=== PATIENT | female | born 1940 | race Caucasian/White ===

== ENCOUNTER → 2020-02-09 14:15 | Outpatient (CLI) | payer MEDICARE, OTHER, SELFPAY ==
--- NOTE | 2020-02-09 | DI.MRI.S_ITS ---
PROCEDURE: MR LUMBAR SPINE WO CON INDICATIONS: Lumbago with sciatica, left side TECHNIQUE: Noncontrast sagittal T1 spin echo and T2 fast echo, sagittal STIR, axial T1 and T2 fast spin echo through the lumbar spine. In cases with scoliosis, additional coronal T2 fast spin echo may be performed. COMPARISON: None. FINDINGS: Image quality: Excellent. Alignment and Curvature: Levoscoliosis is noted. Straightening of the normal lordotic curvature. Grade 1 anterolisthesis of L4 and L5. Bone Marrow: No fracture. Multilevel degenerative endplate sclerosis and spurring. Diffuse facet arthropathy. Numerous, multilevel Schmorl's nodes. Spinal Cord: Conus medullaris terminates at the L2 level. Visualized cord demonstrates normal signal and size. Paraspinous Soft Tissues: T2 hyperintense presumed left renal cyst. L1-L2: Mild canal narrowing. Moderate bilateral foraminal narrowing with slight intervertebral pressure. L2-L3: Mild canal narrowing. Severe right foraminal stenosis with nerve root compression. Moderate left foraminal narrowing with nerve root compression L3-L4: Severe canal stenosis. Partial effacement of both lateral recesses with bilaterally symmetric appearance. Severe bilateral foraminal stenoses with nerve root compression. L4-L5: Severe canal stenosis. Near-complete effacement of both lateral recesses with bilaterally symmetric appearance. Severe bilateral foraminal stenoses with nerve root compression L5-S1: Mild canal narrowing. Partial effacement of both lateral recesses with bilaterally symmetric appearance. Severe left foraminal stenosis with nerve root compression. Moderate right foraminal narrowing with nerve root compression IMPRESSION: Levoscoliosis Grade 1 anterolisthesis of L4-L5 Severe canal stenosis at L3-L4 and L4-L5. Numerous diffuse bilateral foraminal stenoses as detailed above by spinal level Dictated by: Manuel Geiger M.D. on 02/09/2020 at 16:23 Approved by: Manuel Geiger M.D. on 02/09/2020 at 16:37
== END ==
PROVIDERS: PCP Family Medicine; Referring Provider Physical Medicine & Rehabilitation Pain Medicine; Visit Provider Physical Medicine & Rehabilitation Pain Medicine
DX: M54.42 Lumbago with sciatica, left side (principal); M43.16 Spondylolisthesis, lumbar region; M48.061 Spinal stenosis, lumbar region without neurogenic claudication; M48.07 Spinal stenosis, lumbosacral region; M41.9 Scoliosis, unspecified
CPT/HCPCS: 72148

== ENCOUNTER → 2021-12-03 10:08 | Outpatient (CLI) | payer MEDICARE, OTHER, SELFPAY ==
--- NOTE | 2021-12-03 10:12 | DI.RAD.S_ITS ---
PROCEDURE: FL BARIUM SWALLOW W SPEECH INDICATIONS: DYSPHAGIA COMPARISON: None. TECHNIQUE: Examination was conducted in conjunction with speech pathology per standard protocol. In the lateral projection, filming was performed of the patient swallowing. AP projection filming may also be performed with patient swallowing. COMPARISON: FINDINGS: Function: The oral preparatory phase appears normal, with proper containment. The subsequent oral propulsive phase, pharyngeal phase, and esophageal phase of swallowing also appear normal with all proffered substances. Laryngotracheal penetration identified most pronounced with thin viscosity materials. No laryngotracheal aspiration. Pooling in both the vallecula and the piriform sinuses which is not cleared with repeat swallows. Morphology: No cricopharyngeal bar is identified. No cervical esophageal webs. No Zenker's diverticulum. No strictures. IMPRESSION: 1. Laryngotracheal penetration. 2. Bilateral vallecula and piriform sinus pooling. Please see speech pathology report for additional details of the examination. Dictated by: Josefina Masterson MD, PhD on 12/03/2021 at 13:44 Approved by: Josefina Masterson MD, PhD on 12/03/2021 at 13:48
--- NOTE | 2021-12-03 10:32 | ST.SWALLOW ---
Visit Care Team Role Provider Type Star Clancy MD Primary Care Provider Non-Staff Specialty: Medical Address: [address], [place], [address] Email: NATHALY Peña Attending Provider Non-Staff Referring Provider Specialty: Nursing Address: [address], [address], [place], [address] Email: Modified Barium Swallow Study SALESPERSON HEARING [employer] Modified Barium Swallow Study Start: 12/04/21 09:30 Freq: Status: Active Protocol: Document 12/03/21 09:31 LNK (Rec: 12/04/21 10:34 LNK [id number]) Modified Barium Swallow Study Total Time Visit Start Time 10:30 Visit Stop Time 11:00 Total Visit Minutes 30 Visit Information Plan of Care Dates 12/04/21-03/05/22 Referral Referring Physician Adenike Torres PA-C Setting Setting Outpatient Care Patient Information Identification Type Name,Date of Patient History Pt was seen for a Modified Barium Swallow Study secondary to frequent coughing with meals. Pt describeed foods as going down the wrong way. She stated that dry foods such as breads, crackers need additional liquids in order to pass into the esophagus and through to the stomach. Pt described coughing with both solids and liquids. Pt further reported that about 2 weeks ago, she had a salad with seeds in it. The next day, she coughed up a piece of undigested food with seeds in it. Pt has a PMH of GERD that reportedly flairs 3-4x/night, keeping pt awake. She is followed by GI specialist, Dr. Ortega in [place], [place]. Subjective Observations Pt was seated in the fluoroscopy chair with directions and procedures described for the pt. She indicated she understood and agreed to proceed. Patient Positioning Position View Lat-A/P Imaging Lateral View Textures Administered Trials Presented Thin Liquid via Spoon,Thin Liquid via Cup,[place] Liquid via Spoon,[place] Liquid via Cup,Honey Liquid via Spoon, Pudding Thick Liquid via Spoon ,Regular Textures Oral Phase Source: MBSIMP (TM) (C) Bolus Specific Scoring Grid Lip Closure No Impairment (WNL) Tongue Control During Bolus Hold No Impairment (WNL) Bolus Prep/Mastication No Impairment (WNL) Bolus Transport/Lingual Motion No Impairment (WNL) Oral Residue WFL Nasal Regurgitation No Additional Oral Phase Observations OME and DKS were within normal levels. Oral phase for swallowing observation noted good mastication, bolus control and AP transition. Pharyngeal Phase Source: MBSIMP (TM) (C) Bolus Specific Scoring Grid Delayed Initiation of Pharyngeal Swallow Yes: Premature spillage to the pyriform sinuses preswallow Soft Palate Elevation WFL Tongue Base Strength/Range of Motion Moderate Impairment Residue Along the Tongue Base Yes Clearance of Residue Along Tongue Base Mild Impairment Laryngeal Elevation Mild Impairment Anterior Hyoid Movement Moderate Impairment Epiglottic Range of Motion Moderate Impairment Vallecular Residue Yes Clearance of Vallecular Residue Moderate Impairment Laryngeal Vestibular Closure Moderate Impairment Pharyngeal Stripping Wave Moderate Impairment Posterior Pharyngeal Wall Residue Yes Clearance of Posterior Pharyngeal Wall Mild Impairment Residue Upper Esophageal Sphincter Opening WFL Residue in the Pyriform Sinuses Yes Clearance of Residue in the Pyriform Moderate Impairment Sinuses Esophageal Clearance Upright Position Minimal Impairment Pharyngoesophageal Backflow Observed No Additional Pharyngeal Phase Observations Premature spillage to the pyriform sinuses preswallow. Laryngeal elevation was mildly reduced; however, the hyoid movement was minimal. This negatively impacted the epiglottal inversion and created residue in the valeculla and on the inferior surface of the epiiglottis. The tongue base appeared to be weak with reduced linguapharyngeal contact. The posterior pharyngeal wall stripping was observed to be reduced. Epiglottic inversion was slow and inconsistent in timing. Often the epiglottis did not invert until ~50% of the bolus had passed the open airway, lessening the strength of the laryngeal seal and resulting in laryngotracheal penetration x10. No aspiration was observed. Pharyngeal pooling in the pharynx was observed at the valeculla, the pyriform sinuses, the posterior pharyngeal wall and within the larynx. The pharyngeal pooling did not clear despite several subsequent swallows and a water wash. In the A-P view, the barium tablet was noted to hang up in the valeculla briefly before additional water assisted in the tablet entering the esophagus. A/P View Textures Administered Trials Presented Thin Liquid via Spoon,Barium Tablet A/P View Observations Pharyngeal Contraction WFL Residue Observed Valleculae Right,Valleculae Left,Pyriform Sinus Right, Pyriform Sinus Left Esophageal Function WFL Esophageal Clearance Upright Position WFL Additional Observations The esophagus appeared to be WFL Esophageal Observations Esophageal Function The UES opening duration and extensioon appeared to be WFL. There were noted cervical osteophytes at C4, C5 and C6 that narrowed/altered the shape of the esophagus, but did not appear to impede bolus flow. Clinical Impressions Dysphagia Type Pharyngeal phase dysphagia Findings The pt described frequent coughing during meals and a sensation of foods getting stuck in her throat. The above findings would indicate there is oropharyngeal weakness and diminished airwway protection contributing to her symptoms. Additionally, the pharyngeal pooling, especially in the valeculla and pyriform sinuses could result in food residue remaining within the pharynx following meals. Dysphagia therapy is recommended targeting base of tongue strengthening and safe swallow strategies. Rehabilitation Potential Good Patient Appropriate for Therapy Yes Recommendations Diet Liquids Order Thin Diet Order Regular Medication Recommendation As Tolerated Additional Dietary Needs Reminders to Use Strategies Aspiration Precautions Recommended Precautions Alternate Liquids/Solids, Frequent Rest Periods,Small Bites/Sips,Double Swallow Treatment Plan Therapy Recommendations Outpatient Speech Therapy,Base of Tongue Exercises, Compensatory Strategy Education,GERD/Vocal Hygiene Education Recommended Referrals GI Consult Compensatory Strategies Recommendations Sitting Upright (90 deg), Double Swallow,Small Bites and Sips,Alternate Liquids/Solids Short Term Goals 1) Pt education re: normal anatomy/physiology of swallowing will be provided and compared to the MBSS video of her swallow. 2) Pt will practice safe swallow strategies provided at all meals and will report a reduction in cough frequency. 3) Linguapharyngeal strengthening exercises will be practiced 3-5x/day, per pt report. Senior Care Goals Improved swallow function will be reported by pt and observed in a repeat MBS in 3- 6 months
--- NOTE | 2021-12-04 15:30 | ST.SWALLOW ---
Visit Care Team Role Provider Type Star Clancy MD Primary Care Provider Non-Staff Specialty: Medical Address: [address], [place], [address] Email: NATHALY Peña Attending Provider Non-Staff Referring Provider Specialty: Nursing Address: [address], [address], [place], [address] Email: Modified Barium Swallow Study DIRECTOR INDEPENDENT Modified Barium Swallow Study Start: 12/04/21 09:30 Freq: Status: Active Protocol: Document 12/04/21 09:31 LNK (Rec: 12/04/21 10:34 LNK [id number]) Modified Barium Swallow Study Total Time Visit Start Time 10:30 Visit Stop Time 11:00 Total Visit Minutes 30 Visit Information Plan of Care Dates 12/04/21-03/05/22 Referral Referring Physician Adenike Torres PA-C Setting Setting Outpatient Care Patient Information Identification Type Name,Date of Patient History Pt was seen for a Modified Barium Swallow Study secondary to frequent coughing with meals. Pt described foods as going down the wrong way. She stated that dry foods such as breads, crackers need additional liquids in order to pass into the esophagus and through to the stomach. Pt described coughing with both solids and liquids. Pt further reported that about 2 weeks ago, she had a salad with seeds in it. The next day, she coughed up a piece of undigested food with seeds in it. Pt has a PMH of GERD that reportedly flairs 3-4x/night, keeping pt awake. She is followed by GI specialist, Dr. Ortega in [place], [place]. Subjective Observations Pt was seated in the fluoroscopy chair with directions and procedures described for the pt. She indicated she understood and agreed to proceed. Patient Positioning Position View Lat-A/P Imaging Lateral View Textures Administered Trials Presented Thin Liquid via Spoon,Thin Liquid via Cup,[place] Liquid via Spoon,[place] Liquid via Cup,Honey Liquid via Spoon, Pudding Thick Liquid via Spoon ,Regular Textures Oral Phase Source: MBSIMP (TM) (C) Bolus Specific Scoring Grid Lip Closure No Impairment (WNL) Tongue Control During Bolus Hold No Impairment (WNL) Bolus Prep/Mastication No Impairment (WNL) Bolus Transport/Lingual Motion No Impairment (WNL) Oral Residue WFL Nasal Regurgitation No Additional Oral Phase Observations OME and DKS were within normal levels. Oral phase for swallowing observation noted good mastication, bolus control and AP transition. Pharyngeal Phase Source: MBSIMP (TM) (C) Bolus Specific Scoring Grid Delayed Initiation of Pharyngeal Swallow Yes: Premature spillage to the pyriform sinuses preswallow Soft Palate Elevation WFL Tongue Base Strength/Range of Motion Moderate Impairment Residue Along the Tongue Base Yes Clearance of Residue Along Tongue Base Mild Impairment Laryngeal Elevation Mild Impairment Anterior Hyoid Movement Moderate Impairment Epiglottic Range of Motion Moderate Impairment Vallecular Residue Yes Clearance of Vallecular Residue Moderate Impairment Laryngeal Vestibular Closure Moderate Impairment Pharyngeal Stripping Wave Moderate Impairment Posterior Pharyngeal Wall Residue Yes Clearance of Posterior Pharyngeal Wall Mild Impairment Residue Upper Esophageal Sphincter Opening WFL Residue in the Pyriform Sinuses Yes Clearance of Residue in the Pyriform Moderate Impairment Sinuses Esophageal Clearance Upright Position Minimal Impairment Pharyngoesophageal Backflow Observed No Additional Pharyngeal Phase Observations Premature spillage to the pyriform sinuses preswallow. Laryngeal elevation was mildly reduced; however, the hyoid movement was minimal. This negatively impacted the epiglottal inversion and created residue in the valeculla and on the inferior surface of the epiiglottis. The tongue base appeared to be weak with reduced linguapharyngeal contact. The posterior pharyngeal wall stripping was observed to be reduced. Epiglottic inversion was slow and inconsistent in timing. Often the epiglottis did not invert until ~50% of the bolus had passed the open airway, lessening the strength of the laryngeal seal and resulting in laryngotracheal penetration x10. No aspiration was observed. Pharyngeal pooling in the pharynx was observed at the valeculla, the pyriform sinuses, the posterior pharyngeal wall and within the larynx. The pharyngeal pooling did not clear despite several subsequent swallows and a water wash. In the A-P view, the barium tablet was noted to hang up in the valeculla briefly before additional water assisted in the tablet entering the esophagus. A/P View Textures Administered Trials Presented Thin Liquid via Spoon,Barium Tablet A/P View Observations Pharyngeal Contraction WFL Residue Observed Valleculae Right,Valleculae Left,Pyriform Sinus Right, Pyriform Sinus Left Esophageal Function WFL Esophageal Clearance Upright Position WFL Additional Observations The esophagus appeared to be WFL Esophageal Observations Esophageal Function The UES opening duration and extension appeared to be WFL. There were noted cervical osteophytes at C4, C5 and C6 that narrowed/altered the shape of the esophagus, but did not appear to impede bolus flow. Clinical Impressions Dysphagia Type Pharyngeal phase dysphagia Findings The pt described frequent coughing during meals and a sensation of foods getting stuck in her throat. The above findings would indicate there is oropharyngeal weakness and diminished airway protection contributing to her symptoms. Additionally, the pharyngeal pooling, especially in the valeculla and pyriform sinuses could result in food residue remaining within the pharynx following meals. Dysphagia therapy is recommended targeting base of tongue strengthening and safe swallow strategies. Rehabilitation Potential Good Patient Appropriate for Therapy Yes Recommendations Diet Liquids Order Thin Diet Order Regular Medication Recommendation As Tolerated Additional Dietary Needs Reminders to Use Strategies Aspiration Precautions Recommended Precautions Alternate Liquids/Solids, Frequent Rest Periods,Small Bites/Sips,Double Swallow Treatment Plan Therapy Recommendations Outpatient Speech Therapy,Base of Tongue Exercises, Compensatory Strategy Education,GERD/Vocal Hygiene Education Recommended Referrals GI Consult Compensatory Strategies Recommendations Sitting Upright (90 deg), Double Swallow,Small Bites and Sips,Alternate Liquids/Solids Short Term Goals 1) Pt education re: normal anatomy/physiology of swallowing will be provided and compared to the MBSS video of her swallow. 2) Pt will practice safe swallow strategies provided at all meals and will report a reduction in cough frequency. 3) Linguapharyngeal strengthening exercises will be practiced 3-5x/day, per pt report. Fdc Goals Improved swallow function will be reported by pt and observed in a repeat MBS in 3- 6 months
== END ==
PROVIDERS: PCP Family Medicine; Referring Provider Nurse Practitioner; Visit Provider Nurse Practitioner
DX: R13.10 Dysphagia, unspecified (principal)
CPT/HCPCS: 74230; 92611

== ENCOUNTER → 2022-03-31 12:00 | Outpatient (CLI) | payer MEDICARE, OTHER, SELFPAY ==
[2022-03-31 13:46] LABS: Add Manual Diff / Slide Review NO; Basophils Absolute Auto 100 /uL (0-100); Basophils Percent Auto 0.9 % (0-2); Eosinophils Absolute Auto 200 /uL (0-450); Eosinophils Percent Auto 3.8 % (2-4); Hematocrit 32.3 % (36-46); Hemoglobin 11.1 g/dL (12.0-16.0); Lymphocytes Absolute Auto 2200 /uL (1100-4500); Lymphocytes Percent Auto 35.5 % (25-40); Mean Corpuscular HGB Conc 34.4 % (30-36); Monocytes Absolute Auto 500 /uL (0-900); Monocytes Percent Auto 8.6 % (3-14); Neutrophils Absolute Auto 3200 /uL (1500-7000); Neutrophils Percent Auto 51.2 % (50-75); Platelet Count 240 X10^3/uL (150-400); Red Blood Cell Count 3.59 X10^6/uL (4.0-5.2); Red Cell Distribution Width 14.8 % (11.6-14.8); White Blood Cell Count 6.2 X10^3/uL (4.5-11.0)
[2022-03-31 14:09] LABS: BUN Creatinine Ratio 16.9 (6-22); Blood Urea Nitrogen 21 mg/dL (7-17); Calcium 9.4 mg/dL (8.4-10.2); Carbon Dioxide 27 mmol/L (22-32); Chloride 104 mmol/L (98-107); Estimated Glomerular Filt Rate 44 mL/min (>60); Glucose 85 mg/dL (80-110); HEMOLYSIS < 15 (0-50); Potassium 4.2 mmol/L (3.4-5.1); Sodium 138 mmol/L (137-145)
[2022-03-31 14:11] LABS: Appearance Urine UA CLEAR; Bilirubin Urine UA NEGATIVE (NEGATIVE); Color Urine UA YELLOW; Glucose Urine UA NEGATIVE (Negative); Hemoglobin A1C% w Est Avg Glu 5.6 % (4.0-6.0); Ketones Urine UA NEGATIVE (NEGATIVE); Leukocyte Esterase Urine UA 1+ (NEGATIVE); Nitrite Urine UA NEGATIVE (Negative); Occult Blood Urine UA NEGATIVE (Negative); Protein Urine UA NEGATIVE (Negative); Urobilinogen Urine UA 0.2 E.U./dL (0.2)
[2022-03-31 14:22] LABS: Amorphous Sediment Urine 1+; Bacteria Urine Occasional (0-1); Culture Indicated Urine Specimen Cultured; RBC Urine None Seen (0-5/HPF); WBC Urine 5-10/HPF (0-5/HPF)
== END ==
PROVIDERS: PCP Family Medicine; Referring Provider Orthopaedic Surgery; Visit Provider Orthopaedic Surgery
DX: Z01.818 Encounter for other preprocedural examination (principal); R73.9 Hyperglycemia, unspecified; Z01.812 Encounter for preprocedural laboratory examination; N39.0 Urinary tract infection, site not specified
CPT/HCPCS: 36415; 80048; 81001; 83036; 85025; 87086; 93005; 93010

== ENCOUNTER → 2022-06-11 10:11 | Outpatient (CLI) | payer MEDICARE, OTHER, SELFPAY ==
[2022-06-11 11:11] LABS: COVID19 -Nasal RAPID Negative (Negative)
== END ==
PROVIDERS: PCP Nurse Practitioner; Referring Provider Orthopaedic Surgery; Visit Provider Orthopaedic Surgery
DX: Z20.822 Contact with and (suspected) exposure to COVID-19 (principal)
CPT/HCPCS: 87635; C9803

== ENCOUNTER 2022-06-12 12:28 | Day surgery (SDC) | payer MEDICARE, OTHER, SELFPAY ==
[2022-06-02 09:39] VITALS: BMI 34.4
[2022-06-12] VITALS (12 sets, daily range): BP systolic 108–157; BP diastolic 47–85; PULSE 57–79; RESP 12–20; TEMP 35.4–36.3; O2SAT 93–99; BMI 34.4; BMI 34.8
[2022-06-12] MEDS: VANCOMYCIN 1,000 MG/200 ML PIGGYBACK 200 MG IV (13:16)
[2022-06-12] MEDS: ACETAMINOPHEN 325 MG TABLET 975 MG PO (13:18)
[2022-06-12] MEDS: LACTATED RINGERS 1,000 ML 84 ML IV ×2 (13:20→16:23)
--- NOTE | 2022-06-12 13:38 | P.OP_ITS ---
Operative Date/Time/Diagnoses Date of procedure: 06/12/22 Time of procedure: 14:20 Pre-op diagnosis: Left hip osteoarthritis Post-op diagnosis: same Procedure & Clinicians Procedure: Left total hip arthroplasty posterior approach Same procedure as scheduled: Yes Indications: The patient has had progressively worsening left hip pain with radiographic changes consistent with arthritis. Non-operative management has failed and the patient has requested total hip replacement. The risks, benefits and alternatives to surgery were discussed with the patient prior to proceeding. Risks discussed included, but were not limited to, failure to relieve pain, leg length discrepancy, dislocation, stiffness, infection, nerve damage, deep venous thrombosis, pulmonary embolism, stroke, coma, heart attack, permanent paralysis and , as well as the potential need for eventual revision of the prosthetic. Surgeon: Marija Woods Director Of Strategic Communications: Ness Alatorre Anesthesia Type: General and Spinal Operative Notes Findings: Severe left hip osteoarthritis Closure Type: primary Specimen(s): none sent Prosthetic devices, grafts, tissues, transplants, or devices: Woods and nephew R3 size 52, neutral poly liner, one 6.5 mm screw, size 15 standard offset Synergy, 36 by +0 neutral CO, Estimated Blood Loss (mL): 250 Blood products transfused: none Procedure in detail: The patient was seen in the pre-operative area, where the patient identified the left hip as the operative site and this was marked with my initials. The patient received pre-operative antibiotics and was taken to the operating room and placed on the operative table in the right lateral decubitus position after satisfactory anesthesia. A interactive multimedia designer out was performed. The left leg was prepared from the ankle to the iliac crest with ChloroPrep in the usual fashion and draped through sterile drapes. The hip was approached through an approximately 20 cm incision centered over the greater trochanter and curving gently posteriorly as it went proximally. This was carried sharply to the fascia sho, which was divided and retracted with a self retaining retractor. The trochanteric bursa was excised with care being taken to avoid the sciatic nerve, which was identified and protected throughout the case. The short external rotators were incised and the capsulomuscular flap was raised and tagged for later repair. The hip was dislocated, and a femoral neck osteotomy performed approximately 15 mm above the lesser trochanter. Retractors were placed around the femur. The canal was opened with a box cutting osteotome, followed by a T handled reamer and a lateralizing reamer. The chili pepper broach was then used, followed by sequential broaching until there was good stability of the broach in the femur. Retractors were placed to expose the acetabulum. The labrum and central soft tissues were removed. Reaming was performed initially going up in 2 mm increments, then 1 mm increments until good bite was obtained with an odd sized reamer. The cup 1 mm larger than the last reamer was then inserted using the appropriate anteversion guides. A trial neutral liner was placed. The broach was placed in the canal. A trial head and neck were then placed and the hip relocated and checked for leg length and stability. An intraoperative film confirmed the component position and no evidence of fracture. The patient was stable in the position of sleep, of squatting, and could be put through a range of motion with 45 degrees internal rotation without dislocation. At 90 degrees flexion, internal rotation to 70 degrees was possible before di slocation. This was felt to be satisfactory and the appropriate components were opened, and the trials were removed. The acetabular liner was impacted into position. The final stem was then impacted into the prepared femoral canal. A brief Betadine soak was performed while trialing with head options. The hip was meticulously irrigated with normal saline. Finally the femoral head was impacted onto the stem. The acetabulum was cleared of all material and the hip relocated one final time. The capsulomuscular flap was then repaired to the greater trochanter though an awl hole using the tag sutures. The short external rotators were repaired with a nonabsorbable suture. A deep drain was placed and brought out anteriorly. The fascia sho was closed with Vicryl. The subcutaneous layer was closed with barbed sutures and SteriStrips. A Brendan dressing was applied and the patient was taken to recovery having tolerated the procedure well. Complications: none Post-operative Condition: stable Disposition: Acute Care Plan for aftercare: The patient will be maintained on a standard total hip replacement protocol with weight bearing as tolerated and posterior hip precautions. The patient will receive Aspirin and sequential compression devices for DVT prophylaxis. The patient will be discharged home when safe for the home environment.
--- NOTE | 2022-06-12 13:38 | PM.PREOP ---
Pre-operative Note COVID-19 COVID-19 status: Negative Interval Note History & Physical reviewed/Exam performed by Physician: Yes Changes to H&P: No
[2022-06-12] MEDS: CEFAZOLIN 2 GM/100 ML PREMIX 100 ML IV ×2 (14:40→22:46)
[2022-06-12] MEDS: TRANEXAMIC ACID 1,000 MG VIAL 2000 MG INJ (14:50)
--- NOTE | 2022-06-12 15:13 | SUR.OPER ---
Lateral on padded OR bed. Gel axillary roll. Arms secured on padded armboard with pillow supporting top arm. Padded hip positioner braces x4 - anterior and posterior chest and pelvis. Additional gel pad used anterior pelvis. Gel pad under bottom leg from knee to foot and secured with tape over sheet.
[2022-06-12] MEDS: BUPIVACAINE 0.25% (PF) 60 ML, EPINEPHrine 0.3 MG INJ (15:28)
[2022-06-12] MEDS: BUPIVACAINE LIPOSOME 266 MG/20 ML VIAL INJ (15:30)
--- NOTE | 2022-06-12 16:00 | DI.RAD.S_ITS ---
PROCEDURE: XR PELVIS 1-2V INDICATIONS: INNER OP LEFT HIP TECHNIQUE: Intra-operative view of the pelvis and hip acquired. COMPARISON: [facility], CR, XR PELVIS WITH BILATERAL LATERAL HIPS, 03/28/2022, 15:46. [facility], CR, PELVIS 1 OR 2 VIEWS, 05/30/2009, 17:39. FINDINGS: Bones: Intraoperative devices prior to placement of arthroplasty prostheses are in expected positions. No fractures or suspicious bony lesions. Soft tissues: Overlying surgical retractors are present, along with other intraoperative changes. IMPRESSION: Intraoperative left hip arthroplasty. Dictated by: Judy Bustos M.D. on 06/12/2022 at 17:09 Approved by: Judy Bustos M.D. on 06/12/2022 at 17:10
--- NOTE | 2022-06-12 17:00 | DI.RAD.S_ITS ---
PROCEDURE: XR HIP W PEL IF DONE LT 2V INDICATIONS: HIP LEFT TOTAL POSTERIOR TECHNIQUE: AP pelvis and lateral view of the left hip acquired. COMPARISON: None. FINDINGS: Bones: Patient is status post left hip arthroplasty, with hardware components in expected positions. There is suboptimal soft tissue penetration in the cross-table lateral view, however given this, the hip joint appears congruent. The visualized bony structures appear intact. Soft tissues: Overlying postoperative changes are noted. No suspicious soft tissue densities. Vascular calcification. IMPRESSION: 1. Expected appearance post total left hip arthroplasty. Dictated by: Monika Reid M.D. on 06/12/2022 at 18:00 Approved by: Monika Reid M.D. on 06/12/2022 at 18:01
[2022-06-12] MEDS: ACETAMINOPHEN 325 MG TABLET 650 MG PO ×2 (18:28→23:57)
[2022-06-12] MEDS: LACTATED RINGERS 1,000 ML 125 ML IV (18:28)
[2022-06-12] MEDS: IBUPROFEN 400 MG TABLET PO ×2 (18:28→23:57)
[2022-06-12] MEDS: ASPIRIN EC 81 MG TABLET PO (20:27)
[2022-06-12] MEDS: DOCUSATE 100 MG CAPSULE PO (20:27)
[2022-06-13 00:10] VITALS: BP 122/56; PULSE 57; RESP 16; TEMP 35.9; O2SAT 98
--- NOTE | 2022-06-13 01:45 | PC.NURSE ---
Addendum entered by Regla Emery R.N. 06/13/22 01:47: At 0100, Original Note: Patient unable to void, per bladder scanner 797ml urine. Patient straight cathed with return of 900ml clear yellow urine, patient tolerated procedure well.
[2022-06-13] MEDS: LACTATED RINGERS 1,000 ML 125 ML IV (02:31)
[2022-06-13 05:15] VITALS: BP 118/41; PULSE 51; RESP 17; TEMP 35.2; O2SAT 98
[2022-06-13] MEDS: ACETAMINOPHEN 325 MG TABLET 650 MG PO ×2 (06:30→11:18)
[2022-06-13] MEDS: IBUPROFEN 400 MG TABLET PO ×2 (06:31→11:17)
[2022-06-13] MEDS: CEFAZOLIN 2 GM/100 ML PREMIX 100 ML IV (06:31)
[2022-06-13 06:42] LABS: Hematocrit 35.4 % (36-46); Hemoglobin 11.8 g/dL (12.0-16.0)
--- NOTE | 2022-06-13 07:20 | PM.DS.1 ---
History of Present Illness History of Present Illness Date Patient Seen: 06/13/22 Time Patient Seen: 07:21 Chief complaint: Left total Hip posterior Narrative: Operative Date/Time/Diagnoses Date of procedure: 06/12/22 Time of procedure: 14:20 Pre-op diagnosis: Left hip osteoarthritis Post-op diagnosis: same Procedure & Clinicians Procedure: Left total hip arthroplasty posterior approach Same procedure as scheduled: Yes Indications: The patient has had progressively worsening left hip pain with radiographic changes consistent with arthritis. Non-operative management has failed and the patient has requested total hip replacement. The risks, benefits and alternatives to surgery were discussed with the patient prior to proceeding. Risks discussed included, but were not limited to, failure to relieve pain, leg length discrepancy, dislocation, stiffness, infection, nerve damage, deep venous thrombosis, pulmonary embolism, stroke, coma, heart attack, permanent paralysis and , as well as the potential need for eventual revision of the prosthetic. Surgeon: Marija Woods State Assessed Properties Director: Ness Alatorre Anesthesia Type: General and Spinal Operative Notes Closure Type: primary Specimen(s): none sent Discharge Providers Provider Discharge Date: 06/13/22 Primary care physician: NATHALY Gonzalez Consults: 06/12/22 12:00 Consult to Anesthesiology Routine Comment: Consulting Provider: Anesthesiologist Reason for consultation: Regional block for post operative pain control 06/12/22 17:49 Consult to Discharge Planning Routine Comment: Consult to Physical Therapy Evaluate & Treat Comment: Physician Instructions: post op LUIS protocol Consult to Respiratory Therapy Evaluate & Treat Comment: Physician Instructions: Evaluate and treat Discharge provider: Ness Alatorre PA-C Summary Hospital Course Discharge Diagnosis: Left hip OA, s/p total hip arthroplasty Hospital Course: Ms Sanabria's hospital course was unremarkable. On POD# 1 she was feeling well and wanted to go home. She was eating and voiding without difficulty. Her pain was well-controlled with oral medication. She was evaluated by PT prior to discharge. Exam Vital Signs (past 8 hours): - 06/13/22 00:10 06/13/22 05:15 Temperature 96.7 F L 95.4 F L Pulse Rate 57 L 51 L Respiratory Rate 16 17 Blood Pressure 122/56 L 118/41 L Pulse Oximetry 98 98 Oxygen Flow Rate 0 0 Oxygen Delivery Method Room Air Oxygen Flow Rate 0 Narrative Exam Narrative: 5/5 strength in hip flexors, quadriceps, hamstrings, DF, PF, EHL on left. Sensation to light touch intact throughout LLE. Calves soft, compressible, nontender and without palpable cords or masses. ANN dressing functioning, CDI. Objective Labs Result Diagrams: 06/13/22 06:30 Labs: Laboratory Results - last 24 hr 06/13/22 06:30 Hgb 11.8 L Hct 35.4 L PFSH Medical History (Updated 06/02/22 @ 09:47 by Randa Yusuf RN) Asthma History of revision of total replacement of right knee joint (2005) Osteoarthritis Tinnitus Surgical History (Updated 06/13/22 @ 07:26 by Ness Alatorre PA-C) 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) History of total right hip replacement History of total right knee replacement (1988) Hx of appendectomy Hx of bariatric surgery (1987) Hx of cholecystectomy Hx of sinus surgery Social History household members: spouse Smoking Status: Never smoker alcohol intake: never Discharge Assessment & Plan Assessment and Plan Assessment: Left hip OA, s/p total hip arthroplasty Plan of Treatment: Discharge home after PT, ASA 81 mg BID x 6 weeks for VTE, follow up in 2 weeks. Discharge Plan Discharge Plan Patient Disposition: Home Discharge orders & Medications Discharge Orders: Discharge (Order); Ordered 06/13/22 Ordered By: Ness Alatorre Prescriptions: New oxycodone 5 mg Tablet 5 mg PO Q4H PRN (Reason: Pain, Moderate (4-6)) Qty: 60 0RF aspirin 81 mg Tablet,Delayed Release (Dr/Ec) 81 mg PO BID Qty: 90 0RF acetaminophen 325 mg Tablet 650 mg PO Q6HR PRN (Reason: fever or pain) Qty: 240 0RF docusate sodium 100 mg Capsule 100 mg PO BID PRN (Reason: constipation) Qty: 60 2RF ibuprofen 400 mg Tablet 400 mg PO Q6HR PRN (Reason: fever or pain) Qty: 120 0RF Continued Elderberry 1 tab PO DAILY Discontinued ibuprofen 200 mg Tablet 400 mg PO BEDTIME PRN (Reason: Sleep) Follow up/Referrals: Adeniek Torres ARNP [Primary Care Provider] - Marija Woods MD [Physician] - As previously scheduled (Follow up with Dr Woods on 06/25/2022 @ 2:00 pm at [facility] office in [place].) Diet/Activity/Treatments Diet: Diet as Tolerated Activity: Weight bearing as tolerated to left leg. Posterior hip precautions. Cold/Heat Therapy: Ice to hip as needed for pain. Skin/Wound/Dressing Care Report to your healthcare provider any signs of infection, such as:: chills, fever, night sweats, unusual drainage and unusual redness Dressing: May shower with dressing in place; battery pack may get wet, but try to keep it out of the direct spray of the shower. Leave dressing on until follow up appointment. Batteries will in 5-7 days; when that happens, you can disconnect/cut off the battery pack and dispose of it. No bathing or otherwise soaking incision. Visit Report/Discharge Packet Instructions: DI for Hip Replacement Stand Alone Forms: Surgery Discharge Discharge Data Primary Care Provider: Adenike Torres Attending Provider: Marija Woods VTE Deep Vein Thrombosis/Pulmonary Embolism Present on Admission: No
[2022-06-13] MEDS: ASPIRIN EC 81 MG TABLET PO (08:32)
[2022-06-13] MEDS: DOCUSATE 100 MG CAPSULE PO (08:32)
--- NOTE | 2022-06-13 08:42 | CM.DANOTE ---
DCP Assessment: Payor confirmed: Medicare & [employer] PCP confirmed: Adenike Torres MD Pt is a 81 y.o. who presented to the hospital for a scheduled left total hip surgery. Pt brought to the AC unit for further management and evaluation of surgical procedure. DCP met with pt this morning to discuss discharge needs. Pt sitting up in chair eating breakfast. DCP introduced self and role. Pt states she lives in [place] with her in a two story house. Pt states she does not go up the stairs anymore. Pt states that her daugher is in town visiting for a month to help take care of her. Pt states that her is disabled and cannot drive. Pt states that she is fairly independent at baseline and still drives POV. Pt states she uses a cane. Pt states that her daughter will be picking her up from the hospital upon discharge. Pt denies any resources at this time. White board updated and instructed to call. Pt thankful for discussion. P: Pt to work with PT this morning for eval. Once cleared by PT, pt can discharge home via daughter POV. Shivani Martin RN/JOSE ANTONIO Discharge Planning/Care Management CM Discharge Assessment Start: 06/13/22 08:18 Freq: Status: Active Protocol: Document 06/13/22 08:41 LISA (Rec: 06/13/22 08:41 LISA [id number]) Discharge Planning Assessment Assigned Net Making Supervisor Shivani Martin RN/JOSE ANTONIO Advance Directives? Yes Advance Directives on File Yes History Provided By Patient,Medical Record Prior Living Arrangements House Household Members spouse Type of transporation used prior to Drives own vehicle admit Independent with ADL's Yes Is patient alert and oriented? Yes Caregiver for Another Yes: is disabled DME Already Rented / Owned Cane Discharge Plan Home Transportation Arrangement Daughter POV Referrals Initiated None needed Additional Comment At this time. Awaiting PT consult Whiteboard Updated in Patient Room with Yes name and ext. # of Net Making Supervisor Comment Instructed to call Review Status In Process Please Provide Date Initial DC 06/13/22 Assessment Was Performed Next Review Type Continued Stay Review Pre-Anesthesia Assessment Start: 06/02/22 09:39 Freq: Status: Complete Protocol: Document 06/02/22 09:39 CAB (Rec: 06/02/22 10:23 CAB [id number]) Pre-Anesthesia Assessment Preferred Name Leigh Ann Patient Information Reviewed Via Phone Assessment Assessment Completed With Patient Diagnostic Results BMP/CMP,CBC,EKG,Urinalysis Comment Labs/ECG @ [facility] 03/31/22, COVID screen needs to schedule Comment [facility] Seen Specialist in Last 12 Months Yes Specialist Seen Orthopedist,Other Comment GI Primary Language Sammarinese Senior Drupal Developer Required No Height 170.18 cm Weight 99.79 kg Body Mass Index (BMI) 34.4 Hearing Ability Normal Visual Assist Magnifying Glass Dentition Type Teeth, Natural Present Barriers to Learning None Hx Anesthesia Reactions No Hx Family Anesthesia Reaction No Hx Malignant Hyperthermia No Hx Blood Transfusions Yes: Knee surgeries Hx Blood Transfusion Reaction No Anesthesia Review Requested No Vamp Marker No alcohol intake never Smoking Status Never smoker Substance Use Type does not use Pain Present Pain Reported Musculoskeletal Symptoms Abnormal Gait,Difficulty Walking,Joint Pain History of Falling (Recent or History of Yes ) Patient is completely paralyzed or No completely immobile Prosthesis or Orthotic Device Cane Comment Balance issues Is patient on oxygen? No Does patient have CASTELLON/SOB No Hx Sleep Apnea No Currently Taking a Beta Ivana No Can You Climb a Flight of Stairs Without Yes SOB Hx Chest Pain No Hx SOB No Hx Syncope or Dizziness No Anti-Coagulant Therapy No Has a Literacy Consultant No Cardiac Testing No Hx Pacemaker/ICD No Pacemaker Rep Required? No Cardiac Clearance Received Not Applicable Diet Type At Home Regular dysphagia No Urinary Catheter Present No Hx Urinary Self Catheterization No Diabetes No Patient No Lactating No Presence of External or Internal Medical Yes: Bilat knees, right hip Devices Have you had any close contact with Yes: Pt had Covid end of December ' someone diagnosed with COVID-19? 23, very mild symptoms Received a COVID vaccine? Yes: Only one vaccine of Moderna Marital Status Lives With spouse Prior Living Arrangements House Number of Floors (Floors) Two Floors Support System Child/Children,Spouse Does the Patient Have Assistance After Yes: Spouse not able to assist Surgery , daughter will stay x 1 month to assist Patient Discharge Plan Description Return Home Comment Pt advised overnight length of stay per surgeon Feels Safe in Current Environment Yes Been Physically Hurt or Threatened By a No Person in Current Environment Do you have thoughts of harming yourself None or others? Are you currently considering suicide? No Do you have a plan to hurt yourself or No Plan others? Do You Have Any Spiritual Beliefs That No May Affect Your HC Choices? Do You Have Any Cultural Practices That No May Affect Your HC Choices? Comment LDS Who Can We Speak to About Patient's Care Family, friends Identifying Code for Release of Patient Declines to issue Information Health Care Proxy/Next of Kin Davion () Janis ( daughter) Health Care Proxy Phone Number Davion: [phone] Janis: [phone] Emergency Contact Name Davion () Janis ( daughter) Emergency Contact Phone Number Davion: [phone] Janis: [phone] Advance Directives? Yes Advance Directives on File Yes Power of Wild Oyster Harvester Yes Power of Wild Oyster Harvester Name Davion () Power of Wild Oyster Harvester PAC Instructions Do not shave/clip surgical site,Durable medical equipment ,Medications to take/avoid, Nasal antibiotic,No ETOH/ petroleum product on skin DOS, NPO,Post-op transportation,Pre -surgical wash,Sensory aids, Sturdy shoes/comfortable clothes,Do not bring valuables and remove jewelry
[2022-06-13 08:47] VITALS: BP 96/42; PULSE 58; RESP 15; TEMP 36; O2SAT 100
--- NOTE | 2022-06-13 10:27 | PT.IIE ---
Current Diagnoses Unilateral primary osteoarthritis, left hip (06/12/22) Presence of unspecified artificial hip joint (06/12/22) Surgery Performed Operation Date: 06/12/22 14:15 Actual Procedures p Total Hip Arthroplasty(Left) - Marija Woods MD Surgical History (Last Updated 06/02/22 @ 09:47 by Randa Yusuf, RN) 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) History of total right hip replacement History of total right knee replacement (1988) Hx of appendectomy Hx of bariatric surgery (1987) Hx of cholecystectomy Hx of sinus surgery Medical History (Last Updated 06/02/22 @ 09:47 by Randa Yusuf, RN) Asthma History of revision of total replacement of right knee joint (2005) Osteoarthritis Tinnitus Physical Therapy Inpatient Evaluation/Re-Eval M1 PT/OT-IP Prior Functional Status Start: 06/13/22 12:18 Freq: NEEDED Status: Active Protocol: Document 06/13/22 10:27 AB (Rec: 06/13/22 12:32 AB [id number]) Medical Review Prior Functional Status Medical History Reviewed Yes Communication able to make needs known Mobility and Gait pt stated that she is modified independent with all mobilities and ambulation using a SPC Social History Household Members spouse Living Arrangements House Number of Floors (Floors) Two Floors Number of Stairs To Enter/Railing? 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; pt stated that her daughter will stay with them until Jun 17 to assist M2 PT-IP Current Condition Start: 06/13/22 12:18 Freq: NEEDED Status: Active Protocol: Document 06/13/22 10:27 AB (Rec: 06/13/22 12:32 AB [id number]) Physical Therapy Current Condition Current Condition Evaluation Date 06/13/22 Treatment Diagnosis s/p L LUIS posterior approach; difficulty in walking Onset Date 06/12/22 M3 PT-IP Subjective Start: 06/13/22 12:18 Freq: NEEDED Status: Active Protocol: Document 06/13/22 10:27 AB (Rec: 06/13/22 12:32 AB [id number]) Subjective Physical Therapy Visit Type Type Initial Evaluation Visit Start Time 10:27 Visit Stop Time 11:13 Total Visit Minutes 46 Number of MOUTHPIECE MAKER Visits 0 Physical Therapy Visit Comments Patient Comments agreeable to do PT Therapy Pain Assessment Pain When Pain Assessed At Rest Pain Present Pain Present Pain Reported Location Left Hip Intensity 1 Scale Used 3/10 with movement Pain Management Techniques Modification of Treatment,Re- positioning,Timing of Activity with Medications M4 PT-IP Mobility and Gait Start: 06/13/22 12:18 Freq: NEEDED Status: Active Protocol: Document 06/13/22 10:27 (Rec: 06/13/22 12:32 [id number]) PT-Bed Mobility Assessment Supine to Sit Supine to Sit Standby Assistance PT-Transfer Assessment Sit to and From Stand Sit to and from Stand Standby Assistance,Contact Guard Assistance,Minimal Assistance,1 Person Assistance ,Use of Upper Extremities Equipment Transfer Assistive Device Gait Belt,Front Wheeled Walker Orthotic/Prosthetic Devices or Brace: No Transfers Transfer Destination Chair Transfer Technique ambulated Transfer Ability Level of Assist Standby Assistance,Contact Guard Assistance Comments Mobility Comments educated pt on posterior hip precautions and pt able to recall. BP in supine: 99/59. pt completed supine to sit SBA . Able to sit on EOB SBA. BP checked: 113/56. no c/o dizziness/lightheadedness. completed sit to stand min A. pt ambulated to the chair ~ 12 ft using FWW CGA. BP checked: 118/48. pt educated on sit to stand techniques. completed sit to stand from the chair x 3 reps SBA to CGA. pt transferred to EOB SBA using FWW. completed sit<> stand from the EOB SBA x 2 reps. pt ambulated in room using FWW ~ 50 ft SBA to occasionally CGA during turning. pt agreed to sit on the chair. positioned on the chair. call light and table placed within reach. BP at end of session: 116/37. nurse is aware of BP. offered caregiver training but pt refused. stated that she can tell her daughter on how to assist her. Gait Assessment Gait Gait Assistance Required: Standby Assistance,Contact Guard Assist Distance (Feet) 50 Able to Maintain Weight Bearing Status Yes During Gait Assistive Devices Assistive Device Gait Belt,Front Wheeled Walker Orthotic/Prosthetic Devices or Brace: No Gait Deviations General Gait Pattern Antalgic,Decreased Stride Length,Decreased Feet Clearance,Flexed Trunk,Step-to Gait Factors Limiting Gait Function Factors Limiting Gait Function Decreased Activity Tolerance, Decreased Strength,Limited Range of Motion,Pain,Poor Balance,Poor Safety Awareness, Respiratory Distress PT-Balance Assessment Sitting Balance and Reactions Static Sitting Balance Ability Normal Dynamic Sitting Balance Ability Good Standing Balance and Reactions Static Standing Balance Ability Fair Dynamic Standing Balance Ability Fair Device Used FWW M5 PT-IP Objective Assessments Start: 06/13/22 12:18 Freq: NEEDED Status: Active Protocol: Document 06/13/22 10:27 AB (Rec: 06/13/22 12:32 AB [id number]) Orientation Orientation/Cognition Level of Alertness Alert Orientation Name,Place,Situation Language Function Ability No Deficits Noted Safety Awareness Understands Safety Issues Memory Description No Deficits Noted Gross Range of Motion Lower Extremity ROM Impairments pt with limited ankle ROM and wrists: pt stated that they are starting to use together and unable to move much. Strength Lower Extremity Strength Assessment Left Impaired Hip 3+/5 Knee 4-/5 Coordination Assessment Gross Coordination Gross Coordination WNL Sensation Assessment Sensation Gross Sensation WNL Muscle Tone Muscle Tone WNL Yes M6 PT-IP Treatment Start: 06/13/22 12:18 Freq: NEEDED Status: Active Protocol: Document 06/13/22 10:27 AB (Rec: 06/13/22 12:32 AB [id number]) Physical Therapy Treatment Education Education Provided Precautions,Weight Bearing Status,Post-Op Packet,Safety M7 PT-IP Assessment and Plan Start: 06/13/22 12:18 Freq: NEEDED Status: Active Protocol: Document 06/13/22 10:27 AB (Rec: 06/13/22 12:32 AB [id number]) PT Summary Assessment and Plan Potential Rehabilitation Potential Good Status of Condition at Evaluation Stable Summary Impairments Pain,ROM,Strength,Balance, Coordination,Sensation,Tone, Cognition,Bed Mobility, Transfers,Gait,Activity Tolerance Assessment Summary pt requiring SBA to CGA with mobility using FWW. pt plans to go home and daughter to assist her at home. pt has outpt PT set up. Goals Bed Mobility Goal Independent Transfer Goal Independent,Front Wheeled Walker Gait Goal Independent,Front Wheel Walker Gait Distance 200 Days to Meet Goals 5 Frequency of Treatment Frequency Of Treatment Twice a Day Treatment Plan Physical Therapy Treatment Plan Bed Mobility Training,Transfer Training,Gait Training, Therapeutic Exercise,Balance Retraining,Post Op Education, Discharge Planning,Hot or Cold Pack,Neuromuscular Re-ed, Coordination Retraining,Manual Therapy Precautions Posterior Hip Precautions No Hip Flexion > 90 degrees,No Hip Internal Rotation,No Hip Adduction Weight Bearing Status Weight Bearing Status Weight Bear as Tolerated Allowed Weight Bearing Amount (enter % LLE WBAT or #) (%) Recommendations To Nursing Amount of Assist Needed 1 Person Assist Discharge Recommendations PT Discharge Recommendations Home with Assistance, Outpatient PT Transportation Needs at Discharge Private Vehicle
[2022-06-13] MEDS: polyethylene glycoL 3350 17 GM POWD.PACK PO (11:18)
[2022-06-13 14:43] VITALS: BP 113/52; PULSE 58; RESP 17; TEMP 36.5; O2SAT 99
--- NOTE | 2022-06-13 15:13 | PT-IP ANOTE ---
Attempted to see pt this PM, pt refused stating she has no further needs and is pending d/c home. Offers that she has been mobilizing around her room w/ FWW, has supportive family staying with her, all needed DME, and OPPT to begin on Thursday. Able to recall precautions.
== END 2022-06-13 15:45 | disposition home or self-care (01) ==
LOC: OR 12:28 → AC 15:25
PROVIDERS: PCP Nurse Practitioner; Referring Provider Orthopaedic Surgery; Visit Provider Orthopaedic Surgery
PROC: 0SRB0JZ Replacement of Left Hip Joint with Synthetic Substitute, Open Approach (ICD-10-PCS; CPT 27130; principal; 2022-06-12 14:15)
DX: M16.12 Unilateral primary osteoarthritis, left hip (principal); E66.9 Obesity, unspecified; Z68.34 Body mass index [BMI] 34.0-34.9, adult
CPT/HCPCS: 27130; 36415; 72170; 73502; 85014; 85018; 97161; 97530; C1776; C9290; J0171; J0690; J1100; J2250; J2274; J2405; J2704; J3010

== ENCOUNTER → 2023-03-25 09:03 | Outpatient (CLI) | payer MEDICARE, OTHER, SELFPAY ==
[2022-06-12 17:35] VITALS: BMI 34.8
--- NOTE | 2023-03-25 | DI.NM.S_ITS ---
PROCEDURE: NM BONE SCAN WHOLE BODY RADIOPHARMACEUTICAL: 20.9 mCi Tc-99m MDP IV. INDICATIONS: Presence of artificial hip joint, bilateral TECHNIQUE: Delayed whole-body scintigrams were obtained approximately 3-4 hours after intravenous injection of radiotracer. Anterior and posterior views were acquired from vertex to feet. COMPARISON: [facility], CR, XR KNEE ARTHRITIC SERIES BI, 01/31/2019, 14:45. [facility], CR, XR PELVIS WITH LATERAL HIP LEFT, 03/06/2023, 9:01. FINDINGS: Comparison x-ray dated 03/06/2023 demonstrates bilateral total hip arthroplasties. Hip prostheses are in anatomic alignment. Comparison radiographs dated 01/31/2019 demonstrates bilateral total knee arthroplasties. A delayed whole body bone scan was obtained. There are postsurgical changes related to bilateral hip and knee arthroplasties. No scintigraphic findings to suggest prosthesis loosening or infection. There are foci of increased periarticular activity, most pronounced in the right ankle and left hindfoot. Recommend radiographic correlation. No lesions are identified in skull, sternum, clavicles, scapulae, ribs, bony pelvis, and visualized shafts of the long bones. There are foci of increased uptake in cervical, thoracic and lumbar spine most likely secondary to degenerative disc and facet disease; early metastasis to spine could be obscured by degenerative changes. There are foci of increased periarticular activity involving shoulders, sternoclavicular joints and elbows, compatible with degenerative/arthritic changes. IMPRESSION: 1. There are postsurgical changes related to bilateral hip arthroplasties and bilateral knee arthroplasties. No scintigraphic findings to suggest prosthesis loosening or infection. 2. Intense uptake in the right ankle and left hindfoot. The scintigraphic findings are nonspecific and could be secondary to a combination of posttraumatic injuries or degenerative/arthritic changes. Recommend radiographic correlation. 3. Degenerative changes in spine and multiple peripheral joints. Dictated by: Barbara Crowell M.D. on 03/25/2023 at 15:34 Approved by: Barbara Crowell M.D. on 03/25/2023 at 15:39
== END ==
PROVIDERS: PCP Nurse Practitioner; Referring Provider Orthopaedic Surgery; Visit Provider Orthopaedic Surgery
DX: Z96.643 Presence of artificial hip joint, bilateral (principal); Z09 Encounter for follow-up examination after completed treatment for conditions other than malignant neoplasm; Z96.653 Presence of artificial knee joint, bilateral
CPT/HCPCS: 78306; A9503

== ENCOUNTER 2023-05-26 10:42 | Emergency (ER) | payer MEDICARE, OTHER, SELFPAY ==
[2022-06-12 17:35] VITALS: BMI 34.8
[2023-05-26] VITALS (36 sets, daily range): BP systolic 140–179; BP diastolic 64–130; PULSE 53–73; RESP 9–25; TEMP 36.7; O2SAT 91–100; BMI 34.4
--- NOTE | 2023-05-26 | DI.RAD.S_ITS ---
PROCEDURE: XR HIP W PEL IF DONE RT 2V INDICATIONS: POST REDUCTION RIGHT HIP TECHNIQUE: AP pelvis with lateral view(s) of the right hip(s). COMPARISON: [facility], BIB, XR HIP W PEL IF DONE RT 2V, 05/26/2023, 10:52. [facility], BIB, XR HIP W PEL IF DONE LT 2V, 06/12/2022, 17:01. FINDINGS: Bones: No fractures or dislocations. Pelvic ring appears intact. No suspicious bony lesions. Interval reduction of the right total hip arthroplasty, which appears normally aligned. Soft tissues: The visualized bowel gas pattern is normal. No suspicious soft tissue calcifications. IMPRESSION: Interval reduction, with adequate alignment. No displaced fracture. Dictated by: Luke Guzman M.D. on 05/26/2023 at 13:02 Approved by: Luke Guzman M.D. on 05/26/2023 at 13:02
--- NOTE | 2023-05-26 10:45 | DI.RAD.S_ITS ---
PROCEDURE: XR HIP W PEL IF DONE RT 2V INDICATIONS: dislocation vs fracture TECHNIQUE: AP pelvis with lateral view(s) of the right hip(s). COMPARISON: [facility], CR, XR HIP W PEL IF DONE LT 2V, 06/12/2022, 17:01. FINDINGS: Bones: Status post bilateral total hip arthroplasties. Left hip arthroplasty hardware appears intact and normally aligned. There is superior dislocation of the right femoral head component from the right acetabular cup component. No fracture identified. Lower lumbar spondylosis. Soft tissues: The visualized bowel gas pattern is normal. No suspicious soft tissue calcifications. IMPRESSION: 1. Superior dislocation of the right femoral head component of right total hip arthroplasty. No acute fracture identified. 2. Status post left total hip arthroplasty without evidence for hardware complication. Dictated by: Casey Gardner M.D. on 05/26/2023 at 11:35 Approved by: Casey Gardner M.D. on 05/26/2023 at 11:36
--- NOTE | 2023-05-26 10:53 | ED_ITS ---
HPI - General Adult General Chief complaint: Extremity Problem,Nontraumatic Stated complaint: R hip dislocation Time Seen by Provider: 05/26/23 10:45 Source: patient Mode of arrival: EMS Limitations: no limitations History of Present Illness HPI narrative: 82-year-old female. History of bilateral total hip arthroplasties. Has never dislocated her hips in the past. She is here for what she thinks is a right-chrissy ed hip dislocation. She was sitting in her chair this morning. She bent over to put on a parasol ox when she felt like her right hip dislocated. She is been unable to move her right hip since that time. EMS was called. She did receive 6 mg of morphine by EMS prior to arrival. She is no change in any right knee symptoms are right ankle symptoms. Related Data Home Medications Medication Instructions Recorded Confirmed Elderberry 1 tab PO DAILY 06/12/22 06/12/22 Previous Rx's Medication Instructions Recorded acetaminophen 325 mg tablet 650 mg PO Q6HR PRN fever or pain 06/13/22 #240 tabs aspirin 81 mg tablet,delayed 81 mg PO BID #90 tabs 06/13/22 release docusate sodium 100 mg capsule 100 mg PO BID PRN constipation #60 06/13/22 caps ibuprofen 400 mg tablet 400 mg PO Q6HR PRN fever or pain 06/13/22 #120 tabs oxycodone 5 mg tablet 5 mg PO Q4H PRN Pain, Moderate 06/13/22 (4-6) #60 tabs Allergies Allergy/AdvReac Type Severity Reaction Status Date / Time No Known Drug Allergies Allergy Verified 06/13/22 11:47 Review of Systems Musculoskeletal Musculoskeletal: Reports system reviewed and no additional complaints, except as documented Integumentary/Breasts Skin/Breast: Reports system reviewed and no additional complaints, except as documented Neurologic Neurologic: Reports system reviewed and no additional complaints, except as documented Patient History Medical History Asthma History of revision of total replacement of right knee joint (2005) Osteoarthritis Tinnitus Surgical History (Updated 06/13/22 @ 07:26 by Ness Alatorre PA-C) 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) History of total right hip replacement History of total right knee replacement (1988) Hx of appendectomy Hx of bariatric surgery (1987) Hx of cholecystectomy Hx of sinus surgery Social History household members: spouse Smoking Status: Never smoker alcohol intake: never Smoking Status: Never smoker Substance Use Type: does not use Exam Initial Vital Signs Initial Vital Signs: Vital Signs Pulse Rate 60 05/26/23 10:54 Pulse Oximetry 98 05/26/23 10:54 HENMT Head: normal to inspection and normocephalic Cardio Pulses: dorsalis pedis present on the right Skin General: no rashes or lesions noted Neuro General: patient alert and patient awake Sensory Exam: no sensory deficits noted Extrem Other: Does have discomfort with palpation of the right hemipelvis. Her right leg is shortened and internally rotated. Procedures Orthopedic Joint Reduction Joint #1: Time Out Performed: Yes Side: right Joint Reduction Location: hip Analgesia: procedural sedation Technique used: direct manipulation Post-reduction neuro exam: intact Post-reduction vascular: intact Post Reduction X-Ray Obtained: Yes Post Reduction X-Ray Results: reduced Splint Applied: Yes (Knee immobilizer) Patient Tolerated Procedure: Well Orthopedic Splinting/Casting Injury #1: Side: right Lower Extremity Injury Location: upper leg (Hip) Lower Extremity Immobilizer: knee immobilizer Post splinting neuro exam: intact Post splinting vascular exam: intact Placed by: Nursing Procedural Sedation Consent signed: Yes Time out performed: Yes Indication: fracture/dislocation reduction ASA Class: II Mallampati Airway Classification: Class III Preparation: case monitor applied, pulse oximeter, capnometry used, supplemental O2 applied, suction/airway equipment at bedside and IV secured IV Propofol dose (mg): 90 Intraservice time/total sedation time (min): 15 ED Sedation Level: Moderate (Concious) Patient Tolerated Procedure: Well Complications: hypoxia Interventions: Assist by BVM Course Orders Ordered: ED Orders 05/26/23 10:45 XR hip w pel if done RT 2V Stat Sodium Chloride (Normal Saline 0.9%) 1,000 mls @ 125 mls/hr IV CONT ODALYS Last Admin: 05/26/23 11:50 Dose: 125 mls/hr Documented By: RACHAEL Discontinued Medications Propofol (Propofol 200 Mg/20 Ml Vial) 200 mg IV NOW ONE Stop: 05/26/23 11:36 Last Admin: 05/26/23 11:50 Dose: 200 mg Documented By: RACHAEL Vital Signs Vital signs: Vital Signs - 8 hr 05/26/23 10:55 05/26/23 11:03 05/26/23 10:54 Temperature 98.1 F Pulse Rate 70 60 Pulse Rate [Right Posterior Tibial] 68 Respiratory Rate 20 Blood Pressure 160/70 H Pulse Oximetry 99 98 Oxygen Delivery Method Room Air Oxygen Flow Rate 05/26/23 10:56 05/26/23 10:56 05/26/23 11:00 Temperature Pulse Rate 60 73 Pulse Rate [Right Posterior Tibial] Respiratory Rate Blood Pressure 174/130 H Pulse Oximetry 98 97 Oxygen Delivery Method Oxygen Flow Rate 05/26/23 11:05 05/26/23 11:10 05/26/23 11:15 Temperature Pulse Rate 55 L 55 L 58 L Pulse Rate [Right Posterior Tibial] Respiratory Rate Blood Pressure Pulse Oximetry 99 98 98 Oxygen Delivery Method Oxygen Flow Rate 05/26/23 11:20 05/26/23 11:25 05/26/23 11:30 Temperature Pulse Rate 58 L 60 54 L Pulse Rate [Right Posterior Tibial] Respiratory Rate Blood Pressure Pulse Oximetry 98 96 95 Oxygen Delivery Method Oxygen Flow Rate 05/26/23 11:31 05/26/23 11:31 05/26/23 11:35 Temperature Pulse Rate 60 59 L Pulse Rate [Right Posterior Tibial] Respiratory Rate Blood Pressure 167/72 H Pulse Oximetry 94 95 Oxygen Delivery Method Oxygen Flow Rate 05/26/23 11:40 05/26/23 11:45 05/26/23 11:50 Temperature Pulse Rate 63 65 61 Pulse Rate [Right Posterior Tibial] Respiratory Rate Blood Pressure Pulse Oximetry 95 95 97 Oxygen Delivery Method Oxygen Flow Rate 05/26/23 12:38 05/26/23 11:51 05/26/23 11:51 Temperature Pulse Rate 55 L 63 Pulse Rate [Right Posterior Tibial] Respiratory Rate 22 Blood Pressure 150/67 H 179/80 H Pulse Oximetry 96 96 Oxygen Delivery Method Oxygen Flow Rate 05/26/23 11:55 05/26/23 11:55 05/26/23 12:00 Temperature Pulse Rate 61 58 L Pulse Rate [Right Posterior Tibial] Respiratory Rate 16 Blood Pressure 165/74 H Pulse Oximetry 99 100 Oxygen Delivery Method Oxygen Flow Rate 05/26/23 12:01 05/26/23 12:01 05/26/23 12:05 Temperature Pulse Rate 71 Pulse Rate [Right Posterior Tibial] Respiratory Rate 22 Blood Pressure 154/83 H 157/102 H Pulse Oximetry 98 Oxygen Delivery Method Oxygen Flow Rate 05/26/23 12:05 05/26/23 12:10 05/26/23 12:10 Temperature Pulse Rate 53 L 54 L Pulse Rate [Right Posterior Tibial] Respiratory Rate 18 Blood Pressure 145/75 H Pulse Oximetry 100 100 Oxygen Delivery Method Ambu Bag Nasal Cannula Oxygen Flow Rate 15 1 05/26/23 12:15 05/26/23 12:16 05/26/23 12:16 Temperature Pulse Rate 65 64 Pulse Rate [Right Posterior Tibial] Respiratory Rate 21 18 Blood Pressure 146/108 H Pulse Oximetry 96 97 Oxygen Delivery Method Oxygen Flow Rate 05/26/23 12:20 05/26/23 12:20 05/26/23 12:25 Temperature Pulse Rate 56 L Pulse Rate [Right Posterior Tibial] Respiratory Rate 20 Blood Pressure 145/98 H 165/71 H Pulse Oximetry 99 Oxygen Delivery Method Room Air Oxygen Flow Rate 05/26/23 12:25 05/26/23 12:30 05/26/23 12:30 Temperature Pulse Rate 55 L 58 L Pulse Rate [Right Posterior Tibial] Respiratory Rate 17 22 Blood Pressure 157/69 H Pulse Oximetry 96 97 Oxygen Delivery Method Room Air Oxygen Flow Rate 05/26/23 12:35 05/26/23 12:36 05/26/23 12:36 Temperature Pulse Rate 65 61 Pulse Rate [Right Posterior Tibial] Respiratory Rate 25 H 25 H Blood Pressure 152/70 H Pulse Oximetry 99 99 Oxygen Delivery Method Room Air Oxygen Flow Rate 05/26/23 12:40 05/26/23 12:40 05/26/23 12:00 Temperature Pulse Rate 55 L 53 L Pulse Rate [Right Posterior Tibial] Respiratory Rate 9 L 16 Blood Pressure 150/67 H Pulse Oximetry 98 100 Oxygen Delivery Method Room Air Oxygen Flow Rate 05/26/23 12:45 05/26/23 12:45 05/26/23 12:50 Temperature Pulse Rate 56 L Pulse Rate [Right Posterior Tibial] Respiratory Rate 24 Blood Pressure 140/64 151/65 H Pulse Oximetry 97 Oxygen Delivery Method Oxygen Flow Rate 05/26/23 12:50 Temperature Pulse Rate 56 L Pulse Rate [Right Posterior Tibial] Respiratory Rate 12 Blood Pressure Pulse Oximetry 95 Oxygen Delivery Method Room Air Oxygen Flow Rate Medical Decision Making Lab Data Lab results reviewed: Yes I reviewed the patient's lab results. Labs: Point of Care Testing Test Results Negative Point of care testing: Point of Care Testing Test Results Negative Imaging Data Extremity x-ray #1: Radiologist's Impression: PROCEDURE:? XR HIP W PEL IF DONE RT 2V ? INDICATIONS:? dislocation vs fracture ? TECHNIQUE:? AP pelvis with lateral view(s) of the right hip(s).? ? COMPARISON:? [facility], , XR HIP W PEL IF DONE LT 2V, 06/12/2022, 17:01. ? FINDINGS:? ? Bones:? Status post bilateral total hip arthroplasties.? Left hip arthroplasty hardware appears intact and normally aligned.? There is superior dislocation of the right femoral head component from the right acetabular cup component.? No fracture identified.? Lower lumbar spondylosis. ? Soft tissues:? The visualized bowel gas pattern is normal.? No suspicious soft tissue calcifications.? ? ? IMPRESSION:? ? 1. Superior dislocation of the right femoral head component of right total hip arthroplasty.? No acute fracture identified. ? 2. Status post left total hip arthroplasty without evidence for hardware complication. Extremity x-ray #2: Radiologist's Impression: PROCEDURE:? XR HIP W PEL IF DONE RT 2V ? INDICATIONS:? POST REDUCTION RIGHT HIP ? TECHNIQUE:? AP pelvis with lateral view(s) of the right hip(s).? ? COMPARISON:? [facility], CR, XR HIP W PEL IF DONE RT 2V, 05/26/2023, 10:52.? [facility], , XR HIP W PEL IF DONE LT 2V, 06/12/2022, 17:01. ? FINDINGS:? ? Bones:? No fractures or dislocations.? Pelvic ring appears intact.? No suspicious bony lesions.? Interval reduction of the right total hip arthroplasty, which appears normally aligned.? ? Soft tissues:? The visualized bowel gas pattern is normal.? No suspicious soft tissue calcifications.? ? ? IMPRESSION:? Interval reduction, with adequate alignment.? No displaced fracture. MDM Narrative Medical decision making narrative: She did have a nontraumatic right hip dislocation. She was sedated in the hip was reduced as described above. She was placed in a knee immobilizer. She can ambulate as tolerated. No indication for admission to the hospital or emergent orthopedic consultation. She was given return precautions. She expressed understanding and agreement. Discharge Plan Departure Patient Disposition: Home Clinical Impression: Dislocation, hip Instructions: DI for Hip Dislocation -- Adult Activity Restrictions/Additional Instructions: You can walk as tolerated. Continue to take all of your medications as directed. Return to the emergency department for new or worsening symptoms. Prescriptions: No Action Elderberry 1 tab PO DAILY acetaminophen 325 mg Tablet 650 mg PO Q6HR PRN (Reason: fever or pain) Qty: 240 0RF aspirin 81 mg Tablet,Delayed Release (Dr/Ec) 81 mg PO BID Qty: 90 0RF docusate sodium 100 mg Capsule 100 mg PO BID PRN (Reason: constipation) Qty: 60 2RF ibuprofen 400 mg Tablet 400 mg PO Q6HR PRN (Reason: fever or pain) Qty: 120 0RF oxycodone 5 mg Tablet 5 mg PO Q4H PRN (Reason: Pain, Moderate (4-6)) Qty: 60 0RF Referrals: Adenike Torres ARNP [Primary Care Provider] - Stand Alone Forms: Patient Portal/API
[2023-05-26] MEDS: propofoL 200 MG/20 ML VIAL IV (11:50)
[2023-05-26] MEDS: SODIUM CHLORIDE 0.9% 1,000 ML 125 ML IV (11:50)
--- NOTE | 2023-05-26 12:46 | PC.NURSE ---
Time out 1156, conscious sedation 1157, R-hip reduction, 90mg propofol pushed by physician. Pt tolerated procedure well. 1205 to 1210 RT bagged pt @15L to support patient's natural breathing rhythm, O2 sat 100%. At 1210 pt 100% on 1L, 1220 pt 100% on RA. Remainder of propofol wasted by MO/KB @ 1240.
--- NOTE | 2023-05-26 12:55 | PC.NURSE ---
Procedural sedation for right hip reduction complete at 1238. Pt tolerated procedure well. Pt now A&O x4, vss. at bedside. Propofol wasted with Wero Delgado RN.
--- NOTE | 2023-05-26 13:18 | PC.NURSE ---
Knee immobilizer applied, education given, pt verbalized understanding. Physician at the bedside. Ready for d/c. Pt awaiting a ride, person coming from [place].
--- NOTE | 2023-05-26 13:47 | PC.NURSE ---
1238 Procedural sedation for right hip reduction complete. Pt tolerated well and vital signs stable. Propofol waste with Wero CRAFT
== END 2023-05-26 13:45 | disposition home or self-care (01) ==
PROVIDERS: Emergency Provider Emergency Medicine; PCP Nurse Practitioner
DX: S73.004A Unspecified dislocation of right hip, initial encounter (principal); Z96.643 Presence of artificial hip joint, bilateral
CPT/HCPCS: 27265; 73502; 99152; 99284; 99285; J2704

== ENCOUNTER → 2025-07-27 08:14 | Outpatient (CLI) | payer MEDICARE, OTHER, SELFPAY ==
[2022-06-12 17:35] VITALS: BMI 34.8
--- NOTE | 2025-07-27 12:54 | ST.SWALLOW ---
Visit Care Team Role Provider Type NATHALY Peña Primary Care Provider Non-Staff Specialty: Nursing Address: [address], [address], [place], [address] Email: Olga Saeed PA-C Attending Provider Non-Staff Referring Provider Specialty: Medical [facility] [address] [facility] [address], [place], [address] Email: Modified Barium Swallow Study CHANNELER Modified Barium Swallow Study Start: 07/27/25 10:17 Freq: Status: Active Protocol: Document 07/27/25 10:17 LNK (Rec: 07/27/25 12:53 LNK Desktop) Modified Barium Swallow Study Total Time Visit Start Time 09:00 Visit Stop Time 09:30 Total Visit Minutes 30 Referral Referring Physician Adenike Torres MD Reason for Referral dysphagia Setting Setting Outpatient Care Patient Information Identification Type Name,Date of Patient History Pt was seen fir a Modified Barium Swallow Study secondary to c/o of difficulty swallowing breads, steak and other dry foods. She noted she sometimes has difficulty swallowing large pills (i.e., supplements). She stated she has to drink a lot of water in order to help the food go down. Additionally, pt described ' something hard in her throat, left side, that she needs to push back into place. Pt had a MBSS prior completed on 12/03/21. The results of that MBSS indicated oropharyngeal weakness with pharyngeal pooling and laryngeal penetration x10. Swallow therapy was recommended at that time. Pt received swallow therapy at [facility] which focused on oropharyngeal exercised (e.g., effortful swallow). Pt noted that through that therapy she realized she was dehydrated and when she started drinking more water, her swallow improved. Pt was recently seen for a clinical swallow evaluation on 06/29/25. Dysphagia therapy was recommended following this MBSS with emphasis in oropharyngeal strengthening. Subjective Pt was seated in the flouroscopy chair with directions Observations and procedures explained for her. Pt was familiar with the procedure having herself and her having prior MBSSs. She indicated he understood the procedure and agreed to proceed. Patient Positioning Position View Lat-A/P Imaging Lateral View Textures Administered Trials Presented Thin Liquid via Spoon (IDDSI 0),Thin Liquid via Cup ( IDDSI 0),Extremely Thick Liquid via Spoon (IDDSI 4), Regular (IDDSI 7) Barium Tablet Yes The IDDSI Framework Protocol: IDDSI.1 Oral Impairment Source: The Modified Barium Swallow Impairment Profile (MBSImP??) Lip Closure Interlabial escape; no progression to anterior lip Tongue Control Cohesive bolus between tongue to palatal seal During Bolus Hold Bolus Preparation/ Timely & efficient chewing & mashing Mastication Bolus Transport/ Delayed initiation of tongue motion Lingual Motion Oral Residue Trace residue lining oral structures,Residue collection on oral structures Location Tongue Initiation of Bolus head at posterior laryngeal surface of epiglottis Pharyngeal Swallow Additional Oral *OME and DKS were observed to be WNL. Impairment *Dentition natural and in good hygiene Observations *Mastication observed with rotary chew pattern. *Mild delay of swallow initiation for semi-solid and solid trials *Good bolus formation, control and AP transition once initiated *Velopharyngeal closure was WNL. Mild oral phase dysphagia Pharyngeal Impairment Source: The Modified Barium Swallow Impairment Profile (MBSImP??) Soft Palate No bolus between soft palate & pharyngeal wall Elevation Laryngeal Elevation Part.sup.move.thyroid cart/part.approx.arytenoids to epiglot.petiole Anterior Hyoid Partial anterior movement Excursion Epiglottic Movement Partial inversion Laryngeal Vestibular Incomplete; narrow column air/contrast in laryngeal Closure vestibule Pharyngeal Stripping Absent Wave Pharyngoesophageal Complete distention & complete duration; no obstruction Segment Opening of flow Tongue Base Narrow column of contrast/air betwn tongue base & post. Retraction pharyngeal wall Pharyngeal Residue Collection of residue within/on pharyngeal structures Location Diffuse (>3 areas) Additional *Reduced hyolaryngeal elevation and movement Pharyngeal *Inconsistent and weak epiglottic inversion with Impairment incomplete seal of the laryngeal vestibule allowing for Observations penetration/aspiration *Laryngeal penetration observed x 5 with thin liquids with visible laryngeal residue (PAS 5). No penetration noted when pt performed effortful swallow strategy; No penetration with semi-solid or solid trials *Tracheal aspiration without response or effort and visible tracheal residue observed x1 (PAS 8) with consecutive swallows of liquids (large volume, fast rate). Pt cleared trachea following cues to cough *Diffuse pharyngeal pooling, especially in vallecula. Pt cleared pooled residue with spontaneous subsequent swallows A/P View Textures Administered Trials Presented Thin Liquid via Cup (IDDSI 0),Extremely Thick Liquid via Spoon (IDDSI 4) The IDDSI Framework Protocol: IDDSI.1 A/P View Observations Pharyngeal Complete Contraction Esophageal Clearance Complete clearance; esophageal coating Upright Position Vocal Fold Function Good Esophageal Function WFL Additional A-P Dysphagia Type Oral,Pharyngeal Findings Mild oropharyngeal dysphagia observed. Overall, pt's swallow has improved since last MBSS. Pt attributes this improvement to increasing hydration. In this MBSS, tongue base weakness was noted which negatively impacted hyolaryngeal elevation and movement. There was minimal forward movement of the hyoid which resulted in minimal to partial inversion of the epiglottis and diffuse pharyngeal pooling within the pharynx across trials. No posterior pharyngeal contraction was observed resulting in minimal control of the bolus, contributing to the pharyngeal pooling. Residue was observed along the posterior pharyngeal wall, base of tongue and the vallecula. Penetration into the laryngeal vestibule was observed x5 with no reflexive cough elicited (PAS 5). Tracheal aspiration was observed without cough response x1. Aspiration was noted with consecutive swallows, which has large volume and fast rate of swallowing. With single sips the pt did not aspirate. Additionally utilizing an effortful swallow exercise, no penetration/aspiration occurred. Cued coughing was observed to clear tracheal residue; however aspiration was silent. Pt was concerned about her described 'something hard in her throat, left side , that she needs to push back into place. There did not appear to be any unusual or abnormal structure noted. There did appear to be some cartilage calcification at the thyrocricoid joint that may be what she is feeling. She was encouraged to contact her physician if she continues to be concerned or if she feels it is increasing. Continued swallow therpy is recommended to increase tongue base strength and review safe swallow strategies . The results and recommendations of the MBSS were described to the pt while observing still pictures taken during the MBSS. .Pt expressed appreciation and indicated she understood. All pt questions were addressed. The results and recommendations of the MBSS were described to the pt while observing still pictures taken during the MBSS. Rehabilitation Excellent Potential Patient Appropriate Yes: Base of tongue strengthening; safe swallow for Therapy strategies Recommendations Diet Comments No change in diet recommended Treatment Plan Short Term Goals 1) Pt will review MBSS with ST to increase knowledge of swallow physiology and the effects of aging on swallow physiology/function. 2 Pt will effectively utilize effortful swallow to increase extent and duration of pharyngeal pressures to improve pharyngeal clearance of liquids and solids per pt report. 3) Pt will effectively implement increase laryngeal elevation and tongue base using Jarrod and/or Massako retraction to facilitate complete epiglottic inversion 10x@ 5x/day Field Training Manager Goals Pt will meet nutritional needs by mouth with a regular diet with thin liquids without the use of compensatory strategies.
--- NOTE | 2025-07-27 13:13 | ST.IPDYTX ---
Visit Care Team Role Provider Type NATHALY ePña Primary Care Provider Non-Staff Specialty: Nursing Address: [address], [address], [place], [address] Email: Olga Saeed PA-C Attending Provider Non-Staff Referring Provider Specialty: Medical Address: [address], [place], [address] Email: EQUIPMENT INSTALLATION PROFESSIONAL Dysphagia Treatment EQUIPMENT INSTALLATION PROFESSIONAL Dysphagia Treatment Start: 07/27/25 12:59 Freq: Status: Active Protocol: Document 07/27/25 12:59 LNK (Rec: 07/27/25 13:12 LNK Desktop) Dysphagia Treatment Session Time Visit Start Time 09:30 Visit Stop Time 10:15 Total Visit Minutes 45 Setting Assessment Location Outpatient Care Visit Type Note Type Treatment Note Next Note Type Next Note Type Treatment Note Patient Information Identification Type Name Subjective Pt was seated in the flouroscopy room following MBSS Observations assessment. She was interested in the results and recommendations Treatment Treatment Activities No PO trials were attempted. The pt reviewed the MBSS results with this EQUIPMENT INSTALLATION PROFESSIONAL. Results observed were described for the pt: lingual and pharyngeal weakness resulting in laryngeal penetration and silent aspiration. Specific exercises and safe swallow strategies such as effortful swallow along with pharyngeal strengthening exercises were described to increase closure of the laryngeal vestibule and reduce risk of aspiration. Pt was able to demonstrate effortful swallow. Single swallows are a recommended strategy to use at this time in order to reduce aspiration risk as pt aspirated with consecutive. swallows. Pt indicated she understood precautions as well as need for exercise program. Pt was appreciative The IDDSI Framework Protocol: IDDSI.1 Assessment Patient Response to Excellent Treatment Rehab Potential Excellent Recommendations Recommendations Continue Current Diet Treatment Plan Appropriate for Yes Continued Therapy Dysphagia Goals 1) Pt will review MBSS with ST to increase knowledge of swallow physiology and the effects of aging on swallow physiology/function. 2 Pt will effectively utilize effortful swallow to increase extent and duration of pharyngeal pressures to improve pharyngeal clearance of liquids and solids per pt report. 3) Pt will effectively implement increase laryngeal elevation and tongue base using Jarrod and/or Massako retraction to facilitate complete epiglottic inversion 10x@ 5x/day
== END ==
PROVIDERS: PCP Nurse Practitioner; Referring Provider Physician Assistant Medical; Visit Provider Physician Assistant Medical
DX: R13.10 Dysphagia, unspecified (principal)
CPT/HCPCS: 74230; 92526; 92611